=== PATIENT | female | born 1995 | race Caucasian/White ===

== ENCOUNTER 2017-03-30 14:00 | Emergency (ER) | payer MEDICAID ==
[~2017-03-30] VITALS: Ht 167.6 cm; Wt 54.4 kg
[~2017-03-30 14:00] MED LIST: COL100 PO; MOT600 PO
[2017-03-30 14:11] VITALS: Ht 167.6 cm; Wt 54.4 kg
[2017-03-30 19:16] VITALS: BP 120/80
== END 2017-03-30 19:16 | disposition home or self-care (01) ==
LOC: ED 14:00
DX: K60.2 Anal fissure, unspecified (principal); K59.00 Constipation, unspecified; F17.210 Nicotine dependence, cigarettes, uncomplicated; Z71.6 Tobacco abuse counseling; Z90.89 Acquired absence of other organs
CPT/HCPCS: 99406